=== PATIENT | male | born 1980 | race Two or more races ===

== ENCOUNTER 2016-11-08 17:15 | Emergency (ER) | payer SELFPAY ==
[2016-11-08 18:33] LABS: PH,URINE 6.5 (5.0-8.0); URINE APPEARANCE TURBID; URINE BILIRUBIN NEGATIVE (NEGATIVE); URINE BLOOD 4+ (NEGATIVE); URINE COLOR BROWN; URINE GLUCOSE (UA) NEGATIVE (NEGATIVE); URINE LEUKOCYTE ESTERASE 2+ (NEGATIVE); URINE NITRITE POSITIVE (NEGATIVE); URINE PROTEIN 1+ (NEGATIVE); URINE UROBILINOGEN 1 mg/dL (0-1 mg/dl)
[2016-11-08 18:35] LABS: URINE RBC >100 /hpf
[2016-11-08 18:36] LABS: URINE EPITHELIAL CELLS 0-2 /hpf; URINE WBC >50 /hpf
[2016-11-08 18:37] LABS: URINE BACTERIA 1+
[2016-11-08] MEDS ORDERED: PHENAZOPYRIDINE HCL 200 MG TABLET ONE (18:53)
== END 2016-11-08 19:02 | disposition home or self-care (01) ==
LOC: ED 17:15
DX: N39.0 Urinary tract infection, site not specified (principal)
CPT/HCPCS: 87086; 81001; 99283 ×2; A9270